=== PATIENT | male | born 1940 ===

== ENCOUNTER 2020-01-30 06:07 | Day surgery (SDC) | payer OTHER ==
[~2020-01-30 06:07] MED LIST: ACTOS30 MG PO; COZAAR50 MG PO; GLUCOTROL10 MG PO; METFORMIN HCL1000 M2 PO; NEURONTIN800 MG PO
== END 2020-01-30 13:45 | disposition home or self-care (01) ==
LOC: CIR.AMB 06:07
PROVIDERS: ATTEND Otolaryngology Otology & Neurotology
DX: H72.01 Central perforation of tympanic membrane, right ear (principal); H90.11 Conductive hearing loss, unilateral, right ear, with unrestricted hearing on the contralateral side